=== PATIENT | female | born 1985 | race Caucasian/White ===

== ENCOUNTER 2017-01-05 22:06 | Emergency (ER) | payer OTHER ==
--- NOTE | ~2017-01-05 | US106 ---
[facility] A Service of [facility] & [facility] RADIOLOGY TEXT RESULTS PATIENT: JENELLE MAYA LOCATION: GUS : 83 UNIT #: [id number] AGE: [address]: Alejandro Patel DO SEX: F ORDER DR: [id number] [facility] [address] [place], [place] [address] [id number] E MR#: [id number] Acc #: [id number] NAME: JENELLE MAYA : 1985 SEX: F STUDY DATE/TIME: 01/05/2017 22:30 UNIT: GUS ROOM: STUDY DESCRIPTION: US Preg Uterus Transvaginal Attending Physician: Alejandro Patel D.O. Ordering Physician: Alejandro Patel D.O. Primary Care Physician: Primary Care Physician No MEDICAL IMAGING REPORT This report is preliminary unless electronic signature is present EXAM Pelvic ultrasound transabdominal and transvaginal technique 01/05/2017 INDICATION . Pain for 2 days in a 31-year-old female. History indicates IUD in place for 5 years with bleeding in between periods. The patient reports her menstrual cycle stopped around 12/18/2016 and then 12/29/2016 she started bleeding again. She placed a tampon and later "there was blood with tissue around it". Beta HCG 636.61. TECHNIQUE Sonographic imaging of the pelvis was performed transabdominally and then transvaginally for better evaluation of the adnexa and ovarian structures. There are no relevant comparisons. FINDINGS TRANSABDOMINAL IMAGING: Uterine dimensions are about 7.0 x 4.9 x 6.5 cm. Intrauterine device present. Endometrial stripe measures in the normal range at about 11 mm. Both ovaries demonstrate good flow at the time of the study. The right ovary measures about 2.4 x 3.4 x 2.6 cm and the left ovary measures about 4.8 x 5.8 x 4.2 cm. There is a dominant probable hemorrhagic cyst in the right ovary measuring up to 2.3 cm. There are 2 dominant probable hemorrhagic cysts in the left ovary, 1 measuring up to about to 3.7 cm and a second measuring up to about 3.6 cm. No adnexal mass. Small amount of free fluid in the pelvic cul-de-sac. No intrauterine identified. IMPRESSION 1. No intrauterine identified. In the setting of a positive beta HCG, differential considerations are broad. Differential would include most likely a recent miscarriage or blighted ovum. Ectopic considered less likely but not excluded. Early intrauterine STS. [facility] A Service of [facility] RADIOLOGY TEXT RESULTS PATIENT: JENELLE MAYA LOCATION: [facility] : 84 UNIT #: [id number] AGE: [address]: Alejandro Patel DO SEX: F ORDER DR: felt to be much less likely given beta HCG levels and the presence of an intrauterine device. Suggest short-term followup ultrasound, [employer] referral, and repeat beta HCG levels to exclude ectopic in this patient. 2. Ovaries demonstrate good flow at the time of the study. There are bilateral probable physiologic hemorrhagic cysts in the ovaries as cataloged above in the body of the report. 3. Small amount of free fluid in the pelvic cul-de-sac. Dictated by... Wilfred Wilson M.D. THIS IS AN ELECTRONICALLY VERIFIED REPORT Wilfred Wilson M.D. at 01/06/2017 9:56 PM ROBBY/sue TD: 01/06/2017 07:05 JOB #: [id number] MEDICAL IMAGING REPORT Page 1 of 1 COPY
[2017-01-05 20:56] LABS: BASOPHIL% 0.4 % (0-2.5); EOSINOPHIL# 0.1 X10e3 (0-0.7); EOSINOPHIL% 0.7 % (0.0-7.0); HEMATOCRIT 40.6 % (35.0-45.0); HEMOGLOBIN 13.6 gm/dL (12.0-16.0); LYMPHOCYTE% 24.5 % (17.0-45.0); MEAN CELL VOLUME 90.1 FL (83-96); MEAN CORPUSCULAR HEMOGLOBIN 30.1 PG (28-34); MEAN CORPUSCULAR HGB CONC 33.4 g/dL (30-36); MEAN PLATELET VOLUME 7.4 FL (6.5-11.5); MONOCYTE# 0.4 X10e3 (0-1.0); MONOCYTE% 4.9 % (3.0-12.0); NEUTROPHIL# 5.8 X10e3 (1.5-7.1); NEUTROPHIL% 69.5 % (40-75); PLATELET COUNT 266 X10e3 (140-420); RED CELL DISTRIBUTION WIDTH 14.2 % (11.0-15.5); WHITE BLOOD COUNT 8.3 X10e3 (4.0-10.5)
[2017-01-05 20:57] LABS: DIFF IND NO
[2017-01-05 21:25] LABS: BUN/CREATININE RATIO 15.71; CREATININE SERUM 0.7 mg/dL (0.6-1.4); GLOM FILT RATE Estimated 114.6 mL/min (>60); POTASSIUM 3.5 mmol/L (3.5-5.1)
[2017-01-05 22:22] LABS: URINE SOURCE CLEAN CATCH
[2017-01-05 22:26] LABS: URINE APPEARANCE CLEAR; URINE BILIRUBIN NEG (NEG); URINE BLOOD NEG (NEG); URINE COLOR YELLOW; URINE GLUCOSE NEG (NEG); URINE KETONE NEG (NEG); URINE LEUKOCYTE ESTERASE NEG (NEG); URINE NITRATE NEG (NEG); URINE PROTEIN NEG (NEG); URINE SPECIFIC GRAVITY 1.023 (1.003-1.035); URINE UROBILINOGEN 0.2 MG/DL (NEG)
[2017-01-05 22:33] LABS: PARTIAL THROMBOPLASTIN TIME 30.1 SECONDS (23.5-31.3); PROTHROMBIN TIME (PATIENT) 10.2 SECONDS (9.6-11.5)
[2017-01-05 22:37] LABS: CULTURE INDICATED? NO
[2017-01-05 22:45] LABS: ALBUMIN SERUM 4.5 g/dL (3.5-5.0); BILIRUBIN, DIRECT 0.1 mg/dL (0.0-0.2); BILIRUBIN,INDIRECT 0.4 mg/dL (0.0-0.9); BILIRUBIN,TOTAL 0.5 mg/dL (0.2-2.0); PROTEIN TOTAL SERUM 7.3 g/dL (6.0-8.3)
[2017-01-08 11:08] LABS: CHLAMYDIA TRACH Not Detected (Not Detected); N GONOR Not Detected (Not Detected)
== END 2017-01-06 02:25 | disposition home or self-care (01) ==
LOC: CED 22:06
PROVIDERS: Emergency Medicine
DX: O20.0 Threatened abortion (principal); O99.341 Other mental disorders complicating pregnancy, first trimester; F41.9 Anxiety disorder, unspecified; O99.331 Smoking (tobacco) complicating pregnancy, first trimester; F17.200 Nicotine dependence, unspecified, uncomplicated; Z88.1 Allergy status to other antibiotic agents
CPT/HCPCS: 76817; 80048; 80076; 81003; 84702; 84703; 85025; 85610; 85730; 86900; 86901; 87491; 87591; 87808; 87905; 99284